=== PATIENT | female | born 1940 | race African-American/Black ===

== ENCOUNTER 2016-11-10 10:09 | Emergency (ER) | payer MEDICARE, OTHER ==
[~2016-11-10] VITALS: Ht 154.9 cm; Wt 81.8 kg
[~2016-11-10 10:09] MED LIST: ACTOS30 MG PO; ASPIR-LOW81 MG PO; CRESTOR10 MG PO; FLECAINIDE PO; FOLIC ACID PO; GLIPIZIDE5 MG PO; LORTAB 5/500 501 TAB PO; LOTREL 10 MG-201 CAP PO; MAALOX ANTACID1 TAB PO; MACROBID 1100 MG/CAP PO; NEXIUM40 MG PO; PYRIDIUM200 M1 PO; TOPROL XL100 MG PO; ZOFRAN 4MG T4 MG/TAB PO; [UNRECOGNIZED DRUG - OTHER] PO
[2016-11-10 10:13] VITALS: BP 152/81; PULSE 78; TEMP 97.5
[2016-11-10] MEDS ORDERED: VESICARE 5MG5 MG PO (10:25)
[2016-11-10] MEDS ORDERED: NORCO 325 MG-51 TAB PO (10:57)
== END 2016-11-10 11:01 | disposition home or self-care (01) ==
LOC: COL.ER 10:09
DX: M19.032 Primary osteoarthritis, left wrist (principal); E11.9 Type 2 diabetes mellitus without complications; I10 Essential (primary) hypertension; E78.5 Hyperlipidemia, unspecified; Z87.891 Personal history of nicotine dependence; Z79.84 Long term (current) use of oral hypoglycemic drugs; Z79.82 Long term (current) use of aspirin